=== PATIENT | female | born 1955 | race Caucasian/White ===

== ENCOUNTER 2017-08-02 06:30 | Day surgery (SDC) | payer BC ==
[~2017-08-02] VITALS: Ht 167.6 cm; Wt 92.1 kg
[~2017-08-02 06:30] MED LIST: ASPIRIN EC81 MG PO; CARVEDILOL12.5 MG PO; LOSARTAN-HCTZ1 EAC1 PO; LOSARTAN-HCTZ1 EAC2; NORCO 5-325 TA1 EACH PO; PROAIR HFA8.5 GM INH; SYMBICORT 16010.2 GM INH
[2017-08-02] MEDS ORDERED: ADVAIR 250-501 EACH INH (06:54)
--- NOTE | 2017-08-02 08:28 | NUR ---
08/02/17 0828 Tameka Dubois PATIENT ARRIVED TO PACU AT 0810. PATIENT IN LEFT LATERAL POSITION, PASSING GAS. PATIENT RATES ABD DISCOMFORT AT 6/10, DROWSEY ON AND OFF BUT ANSWERING QUESTIONS APPROPIATELY. PATIENT ON 3L OF O2 FOR SATS OF 95%. PATIENT DENIES NAUSEA AND BACK TO SLEEP.
--- NOTE | 2017-08-04 13:13 | OR ---
[facility] [address], [place] [address] Signed DATE OF OPERATION: 08/02/2017 SURGEON: Jozef Watson MD PREOPERATIVE DIAGNOSES: 1. History of tubular adenoma of cecum in 2017. 2. Recent rectal bleeding. POSTOPERATIVE DIAGNOSES: Internal hemorrhoidal changes and sigmoid diverticulosis. No evidence of polyps. PROCEDURE: Total colonoscopy to cecum. ANESTHESIA: Intravenous sedation, fentanyl 100 mcg, Versed 6 mg. INDICATION: This 62-year-old white woman is a patient of Dr. Pike, who underwent colonoscopy by [place] in 2017. At which time, she was found to have a tubular adenoma of the cecum, which was completely excised. She has had recent rectal bleeding. She is concerned in that regard. She does have family history of polyps in her father. Rectal bleeding is generally bright and not copious. She is admitted to undergo colonoscopy. She understands the risks of bleeding, infection, perforation and findings. The prep was good. Complete colonoscopy was undertaken. There were diverticula of the sigmoid, but not too numerous in number or internal hemorrhoidal changes. There was no sign of polyp or recurrent polyp. DESCRIPTION OF PROCEDURE: The patient was brought to the endoscopy suite and placed in lateral decubitus position, given intravenous sedation to the point of slurred speech and nystagmus. Full cardiopulmonary monitoring was maintained. Digital rectal examination was normal. An Olympus video colonoscope was passed in the rectum and manipulated throughout the colon noting a few diverticula of the sigmoid. The scope was advanced to the hepatic flexure, where upon abdominal wall stabilization was required to allow for further passage of the scope. The scope was passed to the proximal cecal inlet. A biopsy forceps was used to elevate the mucosa behind the ileocecal valve to ascertain there is no sign of recurrent polyp. The scope was withdrawn from that point and examination undertaken. There was no sign of new polyp or other abnormality. A few diverticula were seen in the sigmoid. Retroflexed view in the rectum did confirm some internal Electronically Signed By: JOZEF WATSON MD 08/04/17 1313 PATIENT NAME: SABRINA GÓMEZ OPERATIVE REPORT DATE OF : 55 REPORT #: [id number] PHYSICIAN: JOZEF WATSON MD PCP: JP PIKE MD REPORT IS CONFIDENTIAL AND NOT TO BE RELEASED WITHOUT AUTHORIZATION [facility] [address] [place] [address] [place], [place] [address] Signed hemorrhoidal change. The scope was removed and the patient was taken to recovery room in good condition. CONCLUSION DIAGNOSIS: Rectal bleeding probably related to hemorrhoids. PLAN: Recommend Citrucel fiber supplement daily. Repeat colonoscopy in 5 years, sooner if symptoms should recur. She will return to the ongoing care of Dr. Pike. MD MARTIN eBdoya/RAMAKRISHNA /[id number] cc: Dr. Pike Copies: ~ Electronically Signed By: JOZEF WATSON MD 08/04/17 1313 PATIENT NAME: SABRINA GÓMEZ OPERATIVE REPORT DATE OF : 55 REPORT #: [id number] PHYSICIAN: JOZEF WATSON MD PCP: JP PIKE MD REPORT IS CONFIDENTIAL AND NOT TO BE RELEASED WITHOUT AUTHORIZATION
== END 2017-08-02 09:20 | disposition home or self-care (01) ==
LOC: DS 06:30 → OPS 06:30 → DS 06:45 → OPS 06:45
PROVIDERS: Surgery
PROC: 0DJD8ZZ Inspection of Lower Intestinal Tract, Via Natural or Artificial Opening Endoscopic (ICD-10-PCS; principal; 2017-08-02 06:45)
DX: K64.8 Other hemorrhoids (principal); K57.30 Diverticulosis of large intestine without perforation or abscess without bleeding; I10 Essential (primary) hypertension; J45.909 Unspecified asthma, uncomplicated; Z86.010 Personal history of colon polyps; Z83.71 Family history of colonic polyps; Z88.2 Allergy status to sulfonamides; Z88.8 Allergy status to other drugs, medicaments and biological substances; Z98.890 Other specified postprocedural states
CPT/HCPCS: 99153; G0500; J2250; J3010; J7120

== ENCOUNTER 2022-11-19 12:03 | Day surgery (SDC) | payer BC ==
[~2022-11-19] VITALS: Ht 165.1 cm; Wt 81.4 kg
[~2022-11-19 12:03] MED LIST changes: +ADVAIR 250-501 EACH INH; +DOXYCYCLINE HY100 MG PO; +OSTERA TABLET1 EACH; +VAZALORE81 MG PO
[2022-11-19 12:15] VITALS: BP 137/67
--- NOTE | 2022-11-19 14:37 | NUR ---
11/19/22 1437 Camila Cadet 1433-PATIENT ARRIVED TO PACU ON 2L NC RR EVEN. PATIENT DROWSY DENIES PAIN OR NAUSEA LAYING LEFT LATERAL. ABDOMEN SOFT. IVF INFUSING. PATIENT DOZES BACK TO SLEEP.
[2022-11-19 15:30] VITALS: BP 122/67
--- NOTE | 2022-11-22 14:35 | OR ---
[facility] [address] [place], [place] [address] Signed DATE OF OPERATION: 11/19/2022 SURGEON: Jozef Watson MD PREOPERATIVE DIAGNOSES: History of polyp 2018, known diverticulosis. POSTOPERATIVE DIAGNOSES: Sigmoid and left-sided diverticulosis, no evidence of polyps. PROCEDURE: Total colonoscopy to cecum. ANESTHESIA: Intravenous sedation fentanyl 150 mcg and Versed 7 mg. INDICATION: This 67-year-old white woman is a patient of Dr. Pike. She underwent colonoscopy in 2017, showing tubular adenoma and subsequently in 2018, which was negative except for diverticulosis. She is symptom free having no bleeding, diarrhea, or constipation and has no known family history of colon cancer. She is admitted at this time to undergo colonoscopy. She understands the risk of bleeding, infection, and perforation. FINDINGS: The prep was good. Complete colonoscopy was undertaken of the cecum without question. Elevation of mucosa behind the ileocecal valve confirmed no evidence of abnormality of the cecum. She had numerous diverticula of the sigmoid and left colon, however. DESCRIPTION OF PROCEDURE: The patient was brought to the endoscopy suite and placed in lateral decubitus position given intravenous sedation to the point of slurred speech and nystagmus. Digital rectal examination was normal. An Olympus video colonoscope was passed in the rectum and manipulated throughout the colon ultimately intubating the cecum itself. The ileocecal valve and appendiceal orifice were normal. The scope was withdrawn from that point. Examination throughout showed no sign of abnormality except for diverticular changes of the left colon and sigmoid. Retroflexed view of the rectum was normal. Scope was removed and the patient taken to the recovery room in good condition. Electronically Signed By: JOZEF WATSON MD 11/22/22 1435 PATIENT NAME: SABRINA GMÓEZ OPERATIVE REPORT DATE OF : 55 REPORT #: [id number] PHYSICIAN: JOZEF WATSON MD PCP: JP PIKE MD REPORT IS CONFIDENTIAL AND NOT TO BE RELEASED WITHOUT AUTHORIZATION [address] [place], [place] [address] Signed CONCLUDING DIAGNOSIS: Diverticulosis. No evidence of polyps. PLAN: Recommend repeat colonoscopy in 10 years, sooner if clinically indicated. She will return to the ongoing care of Dr. Pike. MD MARTIN Bedoya/MODL /[id number] cc: Jp Pike MD Copies: JP PIKE MD ~ Electronically Signed By: JOZEF WATSON MD 11/22/22 1435 PATIENT NAME: SABRINA GÓMEZ OPERATIVE REPORT DATE OF : 55 REPORT #: [id number] PHYSICIAN: JOZEF WATSON MD PCP: JP PIKE MD REPORT IS CONFIDENTIAL AND NOT TO BE RELEASED WITHOUT AUTHORIZATION
== END 2022-11-19 15:40 | disposition home or self-care (01) ==
LOC: OPS 12:03 → DS 12:03 → OPS 13:00 → DS 13:00 → OPS 15:40
PROVIDERS: ATTEND Surgery
PROC: 0DJD8ZZ Inspection of Lower Intestinal Tract, Via Natural or Artificial Opening Endoscopic (ICD-10-PCS; principal; 2022-11-19 13:00)
DX: Z12.11 Encounter for screening for malignant neoplasm of colon (principal); K57.30 Diverticulosis of large intestine without perforation or abscess without bleeding; Z86.010 Personal history of colon polyps; I10 Essential (primary) hypertension; I44.7 Left bundle-branch block, unspecified; J45.909 Unspecified asthma, uncomplicated; G47.30 Sleep apnea, unspecified; Z98.49 Cataract extraction status, unspecified eye; Z88.8 Allergy status to other drugs, medicaments and biological substances; Z88.2 Allergy status to sulfonamides; Z88.6 Allergy status to analgesic agent; Z79.899 Other long term (current) drug therapy
CPT/HCPCS: 99153; G0500; J2250; J3010; J7121